=== PATIENT | male | born 1950 | race Caucasian/White ===

== ENCOUNTER 2023-12-23 20:53 | Inpatient (IN) | payer OTHER ==
[~2023-12-23] VITALS: Ht 172.7 cm; Wt 72.0 kg
[2023-12-23] MEDS: pantoprazole 40 MG vial IV ONE (22:54)
[2023-12-23] MEDS: normal saline 1000ml 1,000 ML IV ONE (23:10)
[2023-12-23 23:27] LABS: BASOPHILS # (AUTO) 0.1 X10'3 (0-0.2); BASOPHILS % (AUTO) 1.1 % (0-1); EOSINOPHILS % (AUTO) 0.8 % (0-6); HEMATOCRIT 31.1 % (42.0-52.0); HEMOGLOBIN 10.2 g/dl (14.0-17.9); LYMPHOCYTES # (AUTO) 0.4 X10'3 (1.1-4.8); LYMPHOCYTES % (AUTO) 7.8 % (21-51); MEAN CORPUSCULAR HEMOGLOBIN 30.3 PG (27.0-31.0); MEAN CORPUSCULAR HGB CONC 32.8 g/dL (33.0-36.5); MEAN CORPUSCULAR VOLUME 92.6 FL (78-98); MONOCYTES # (AUTO) 0.2 X10'3 (0-0.9); NEUTROPHILS # (AUTO) 4.5 X10'3 (1.8-7.7); NEUTROPHILS % (AUTO) 86.3 % (42-75); PLATELET COUNT 158 X10'3 (140-440); RED BLOOD COUNT 3.36 X10'6 (4.70-6.10); RED CELL DISTRIBUTION WIDTH 14.9 % (11.5-14.5); WHITE BLOOD COUNT 5.2 X10'3 (4.5-11.0)
[2023-12-23 23:38] LABS: ALBUMIN 3.2 G/DL (3.4-5.0); ANION GAP 8 (8-16); BLOOD UREA NITROGEN 31 MG/DL (7-18); CHLORIDE 107 MMOL/L (99-107); GLUCOSE 111 MG/DL (70-104); POTASSIUM 4.4 MMOL/L (3.5-5.1); SODIUM 143 MMOL/L (135-145); TOTAL CARBON DIOXIDE 27.9 MMOL/L (24-32)
[2023-12-24] VITALS (14 sets, daily range): BP systolic 99–127; BP diastolic 60–86; PULSE 78–101; RESP 14–23; TEMP 78–99.2; O2SAT 92–99
[2023-12-24] MEDS ORDERED: acetaminophen 325mg tablet PO PRN (00:45)
[2023-12-24] MEDS ORDERED: magnesium hydroxide 30ml (MOM) UD suspension PO PRN (00:45)
[2023-12-24] MEDS ORDERED: mag hydrox/Alum hydrox/simeth 30ml oral suspension PO PRN (00:45)
[2023-12-24] MEDS ORDERED: ondansetron/PF 4mg/2ml inj IV PRN (00:45)
[2023-12-24] MEDS ORDERED: magnesium sulf-water 2g/50mL 50 ML IV PRN (00:45)
[2023-12-24] MEDS ORDERED: morphine 2 MG/ML inj. syringe IV PRN (00:45)
[2023-12-24] MEDS ORDERED: potassium Cl 20 mEq SR tablet PO PRN ×2 (00:45)
[2023-12-24] MEDS ORDERED: potassium Cl 40MEQ/1/2NS 520ml 520 ML IV PRN (00:45)
[2023-12-24] MEDS ORDERED: magnesium Cl slow-release 64mg tablet PO PRN (00:45)
[2023-12-24] MEDS ORDERED: magnesium sulf-water 4G/100mL 100 ML IV PRN (00:45)
[2023-12-24 01:21] LABS: CALCIUM 8.1 MG/DL (8.5-10.1)
[2023-12-24] MEDS: ringers solution, lacted 1,000 ML IV ONE (01:57)
[2023-12-24 02:03] LABS: INR 1.3 INR
[2023-12-24 02:04] LABS: ALANINE AMINOTRANSFERASE 303 U/L (12-78); ALBUMIN/GLOBULIN RATIO 1.6 (1.1-1.5); ALKALINE PHOSPHATASE 123 IU/L (46-116); ASPARTATE AMINO TRANSFERASE 311 U/L (10-37); BILIRUBIN,TOTAL 0.7 MG/DL (0.1-1.0); TOTAL PROTEIN 5.2 G/DL (6.4-8.2)
[2023-12-24 02:06] LABS: APTT 20 SECONDS (22-32)
[2023-12-24] MEDS: pantoprazole 40MG/NS 100ML BAG 100 ML IV SCH (02:07)
[2023-12-24 02:37] LABS: MAGNESIUM 1.9 MG/DL (1.5-2.4)
[2023-12-24] MEDS: sodium chloride 0.45% 1,000 ML IV SCH (02:51)
[2023-12-24 02:54] LABS: INR 1.3 INR; PROTHROMBIN TIME 13.4 SECONDS (9.0-12.0)
[2023-12-24 02:56] LABS: APTT 20 SECONDS (22-32)
[2023-12-24] MEDS ORDERED: ATOR10TA87 PO (02:59)
[2023-12-24] MEDS ORDERED: PANT40TA54 PO (02:59)
[2023-12-24] MEDS ORDERED: ASPI-1265 PO (03:00)
[2023-12-24] MEDS ORDERED: ESCI10TA PO (03:01)
[2023-12-24 04:21] LABS: BILIRUBIN,URINE NEGATIVE (Neg); CLARITY,URINE CLEAR (Clear); COLOR,URINE YELLOW (Yellow); GLUCOSE, URINE NEGATIVE (Neg); KETONES,URINE NEGATIVE (Neg); LEUKOCYTE ESTERASE ,URINE NEGATIVE (Neg); NITRITES, URINE NEGATIVE (Neg); OCCULT BLOOD,URINE NEGATIVE (Neg); PROTEIN,URINE NEGATIVE (Neg); UROBILINOGEN,URINE 0.2 E.U/dL (0.2-1.0)
[2023-12-24 04:23] LABS: UA COLLECTION TYPE CLN CATCH MIDSTREAM
[2023-12-24 06:04] LABS: HEMATOCRIT 27.8 % (42.0-52.0); MEAN CORPUSCULAR HEMOGLOBIN 30.2 PG (27.0-31.0); MEAN CORPUSCULAR HGB CONC 32.5 g/dL (33.0-36.5); MEAN CORPUSCULAR VOLUME 92.8 FL (78-98); MEAN PLATELET VOLUME 9.1 FL (7.4-10.4); PLATELET COUNT 135 X10'3 (140-440); RED CELL DISTRIBUTION WIDTH 14.4 % (11.5-14.5); WHITE BLOOD COUNT 11.2 X10'3 (4.5-11.0)
[2023-12-24] MEDS: K and/or MAG REPLACEMENT MC SCH (08:00)
[2023-12-24] MEDS: docusate sod 100mg capsule PO SCH (08:00)
[2023-12-24 08:54] LABS: BUN/CREATININE RATIO 37.3 (10.0-20.0); CREATININE 0.83 MG/DL (0.60-1.10); eCRCL 77 ML/MIN; eGFR > 90 ML/MIN
[2023-12-24 08:55] LABS: CALCIUM 8.4 MG/DL (8.5-10.1)
[2023-12-24] MEDS ORDERED: fentaNYL/PF 50MCG/1 ML 2ML syringe ONE (09:31)
[2023-12-24] MEDS ORDERED: MIDAZolam 1 MG/ML 5ML VIAL ONE (09:32)
[2023-12-24] MEDS ORDERED: LIDOcaine 2% Viscous 15ml cup ONE (09:32)
[2023-12-24 15:15] LABS: HEMATOCRIT 26.8 % (42.0-52.0); HEMOGLOBIN 8.8 g/dl (14.0-17.9); MEAN CORPUSCULAR HEMOGLOBIN 30.3 PG (27.0-31.0); MEAN CORPUSCULAR HGB CONC 32.7 g/dL (33.0-36.5); MEAN CORPUSCULAR VOLUME 92.8 FL (78-98); PLATELET COUNT 130 X10'3 (140-440); RED BLOOD COUNT 2.89 X10'6 (4.70-6.10); RED CELL DISTRIBUTION WIDTH 15.2 % (11.5-14.5); WHITE BLOOD COUNT 10.7 X10'3 (4.5-11.0)
[2023-12-24] MEDS: normal saline 1000ml 1,000 ML IV SCH (15:25)
[2023-12-24] MEDS: diatr meglu/diatrizoate 30ml oral sol.-(3 dose) bottle PO SCH (20:36)
[2023-12-24 20:54] LABS: HEMATOCRIT 25.2 % (42.0-52.0); HEMOGLOBIN 8.3 g/dl (14.0-17.9); MEAN CORPUSCULAR HEMOGLOBIN 30.3 PG (27.0-31.0); MEAN CORPUSCULAR HGB CONC 33.1 g/dL (33.0-36.5); MEAN CORPUSCULAR VOLUME 91.5 FL (78-98); MEAN PLATELET VOLUME 8.4 FL (7.4-10.4); PLATELET COUNT 130 X10'3 (140-440); RED BLOOD COUNT 2.75 X10'6 (4.70-6.10); RED CELL DISTRIBUTION WIDTH 14.6 % (11.5-14.5); WHITE BLOOD COUNT 8.8 X10'3 (4.5-11.0)
[2023-12-25 02:00] VITALS: BP 104/73; PULSE 75; RESP 14; TEMP 98.7; O2SAT 98
[2023-12-25 06:15] LABS: BASOPHILS # (AUTO) 0.1 X10'3 (0-0.2); BASOPHILS % (AUTO) 1.2 % (0-1); EOSINOPHILS # (AUTO) 0.2 X10'3 (0-0.9); EOSINOPHILS % (AUTO) 2.4 % (0-6); HEMATOCRIT 25.4 % (42.0-52.0); HEMOGLOBIN 8.3 g/dl (14.0-17.9); LYMPHOCYTES # (AUTO) 0.8 X10'3 (1.1-4.8); LYMPHOCYTES % (AUTO) 10.9 % (21-51); MEAN CORPUSCULAR HEMOGLOBIN 30.7 PG (27.0-31.0); MEAN CORPUSCULAR HGB CONC 32.9 g/dL (33.0-36.5); MEAN CORPUSCULAR VOLUME 93.4 FL (78-98); MEAN PLATELET VOLUME 9.4 FL (7.4-10.4); MONOCYTES # (AUTO) 0.4 X10'3 (0-0.9); MONOCYTES % (AUTO) 5.3 % (2-12); NEUTROPHILS # (AUTO) 5.7 X10'3 (1.8-7.7); NEUTROPHILS % (AUTO) 80.2 % (42-75); PLATELET COUNT 130 X10'3 (140-440); RED BLOOD COUNT 2.72 X10'6 (4.70-6.10); RED CELL DISTRIBUTION WIDTH 14.6 % (11.5-14.5); WHITE BLOOD COUNT 7.1 X10'3 (4.5-11.0)
[2023-12-25 06:20] LABS: ALANINE AMINOTRANSFERASE 432 U/L (12-78); ALBUMIN 2.7 G/DL (3.4-5.0); ALBUMIN/GLOBULIN RATIO 1.4 (1.1-1.5); ALKALINE PHOSPHATASE 104 IU/L (46-116); ANION GAP 8 (8-16); ASPARTATE AMINO TRANSFERASE 455 U/L (10-37); BILIRUBIN,TOTAL 0.8 MG/DL (0.1-1.0); BLOOD UREA NITROGEN 17 MG/DL (7-18); BUN/CREATININE RATIO 22.1 (10.0-20.0); CALCIUM 7.5 MG/DL (8.5-10.1); CHLORIDE 109 MMOL/L (99-107); CREATININE 0.77 MG/DL (0.60-1.10); GLUCOSE 77 MG/DL (70-104); POTASSIUM 3.9 MMOL/L (3.5-5.1); SODIUM 144 MMOL/L (135-145); TOTAL CARBON DIOXIDE 26.8 MMOL/L (24-32); TOTAL PROTEIN 4.7 G/DL (6.4-8.2); eCRCL 83 ML/MIN; eGFR > 90 ML/MIN
[2023-12-25 06:54] VITALS: BP 124/91; PULSE 50; RESP 18; TEMP 97.3; O2SAT 97
[2023-12-25] MEDS: atorvastatin 10mg tablet PO SCH (07:27)
[2023-12-25] MEDS: pantoprazole 40mg Tablet.DR PO SCH ×2 (07:27→11:35)
[2023-12-25] MEDS: aspirin 81mg tab.chew PO SCH (07:27)
[2023-12-25] MEDS: ESCITALOPRAM 10 mg tablet 10 MG TABLET PO SCH (07:28)
[2023-12-25 08:20] VITALS: BP_SYST 122; BP_SYST 124; BP_DIAS 89; BP_DIAS 91; PULSE 50; PULSE 54; RESP 18; O2SAT 97
[2023-12-25] MEDS ORDERED: iohexol 300mg/ml 100ml inj. ONE (10:11)
[2023-12-25] MEDS: diatr meglu/diatrizoate 30ml oral sol.-(3 dose) bottle PO ONE (10:27)
[2023-12-25 11:22] VITALS: BP 108/70; PULSE 85; RESP 14; TEMP 98; O2SAT 96
[2023-12-25] MEDS ORDERED: PANT40TA54 PO (16:41)
[2023-12-25] MEDS ORDERED: diatr meglu/diatrizoate 30ml oral sol.-(3 dose) bottle PO SCH (21:00)
[2023-12-27 06:02] LABS: HBSAG SCREEN Negative (Negative); HEPATITIS C VIRUS ANTIBODY Non Reactive (Non Reactive)
== END 2023-12-25 17:14 | disposition home or self-care (01) | DRG 375 ==
LOC: ER 20:54 → ED HOLD 12-24 01:01 → PCU 3S 12-24 04:15
PROVIDERS: ADMIT Internal Medicine Pulmonary Disease; ATTEND Family Medicine
PROC: 0DB68ZX Excision of Stomach, Via Natural or Artificial Opening Endoscopic, Diagnostic (ICD-10-PCS; principal; 2023-12-24)
PROC: 0DB78ZX Excision of Stomach, Pylorus, Via Natural or Artificial Opening Endoscopic, Diagnostic (ICD-10-PCS; 2023-12-24)
PROC: BW211ZZ Computerized Tomography (CT Scan) of Abdomen and Pelvis using Low Osmolar Contrast (ICD-10-PCS; 2023-12-25)
DX: C78.89 Secondary malignant neoplasm of other digestive organs (principal); D62 Acute posthemorrhagic anemia; J91.8 Pleural effusion in other conditions classified elsewhere; J98.11 Atelectasis; C78.7 Secondary malignant neoplasm of liver and intrahepatic bile duct; K31.7 Polyp of stomach and duodenum; I10 Essential (primary) hypertension; E78.5 Hyperlipidemia, unspecified; K21.9 Gastro-esophageal reflux disease without esophagitis; F41.9 Anxiety disorder, unspecified; K80.20 Calculus of gallbladder without cholecystitis without obstruction; N40.0 Benign prostatic hyperplasia without lower urinary tract symptoms; Z88.5 Allergy status to narcotic agent
CPT/HCPCS: 36415; 43239; 70450; 71045; 74176; 74178; 76700; 80048; 80053; 81003; 82103; 82310; 82948; 83735; 83970; 84132; 84145; 84484; 85025; 85027; 85610; 85730; 86706; 86803; 86885; 86900; 86901; 87081; 87340; 87522; 88305; 88342; 93005; 97161; 97530; 99152; 99285; A4615; A4620; G0378; J2250; J2470; J3010; J3490; J7030; J7040; J7120; Q9963; Q9967

== ENCOUNTER 2024-03-05 04:20 | Inpatient (IN) | payer OTHER ==
[~2024-03-05] VITALS: Ht 175.3 cm; Wt 65.9 kg
[~2024-03-05 04:20] MED LIST: ATOR10TA87 PO; ESCI10TA PO; PANT40TA54 PO
[2024-03-05] MEDS: normal saline 1000ML IV soln IVB ONE (04:35)
[2024-03-05] MEDS: morphine 4 MG/ML inj SYRINge IV ONE (04:36)
[2024-03-05] MEDS: piperacillin/tazo 4.5gm/100ml 100 ML IV ONE (04:53)
[2024-03-05] MEDS: ondansetron/PF 4mg/2ml inj IV ONE (04:53)
[2024-03-05 04:58] LABS: BASOPHILS % (AUTO) 0.1 % (0-1); EOSINOPHILS % (AUTO) 0.1 % (0-6); HEMATOCRIT 38.1 % (42.0-52.0); HEMOGLOBIN 12.2 g/dl (14.0-17.9); LYMPHOCYTES # (AUTO) 0.1 X10'3 (1.1-4.8); LYMPHOCYTES % (AUTO) 2.5 % (21-51); MEAN CORPUSCULAR HEMOGLOBIN 28.3 PG (27.0-31.0); MEAN CORPUSCULAR HGB CONC 32.1 g/dL (33.0-36.5); MEAN PLATELET VOLUME 8.3 FL (7.4-10.4); MONOCYTES # (AUTO) 0.5 X10'3 (0-0.9); MONOCYTES % (AUTO) 8.8 % (2-12); NEUTROPHILS # (AUTO) 5.1 X10'3 (1.8-7.7); NEUTROPHILS % (AUTO) 88.5 % (42-75); PLATELET COUNT 121 X10'3 (140-440); RED BLOOD COUNT 4.33 X10'6 (4.70-6.10); RED CELL DISTRIBUTION WIDTH 19.7 % (11.5-14.5); WHITE BLOOD COUNT 5.8 X10'3 (4.5-11.0)
[2024-03-05 05:11] LABS: APTT 26 SECONDS (22-32); INR 1.2 INR; PROTHROMBIN TIME 12.7 SECONDS (9.0-12.0)
[2024-03-05 05:13] LABS: ALANINE AMINOTRANSFERASE 123 U/L (12-78); ALBUMIN 3.1 G/DL (3.4-5.0); ALBUMIN/GLOBULIN RATIO 0.9 (1.1-1.5); ALKALINE PHOSPHATASE 274 IU/L (46-116); ANION GAP 11 (8-16); ASPARTATE AMINO TRANSFERASE 218 U/L (10-37); BILIRUBIN,TOTAL 1.5 MG/DL (0.1-1.0); BLOOD UREA NITROGEN 14 MG/DL (7-18); BUN/CREATININE RATIO 14.6 (10.0-20.0); CALCIUM 9.1 MG/DL (8.5-10.1); CHLORIDE 102 MMOL/L (99-107); CREATININE 0.96 MG/DL (0.60-1.10); GLUCOSE 132 MG/DL (70-104); POTASSIUM 3.7 MMOL/L (3.5-5.1); SODIUM 139 MMOL/L (135-145); TOTAL CARBON DIOXIDE 25.9 MMOL/L (24-32); TOTAL PROTEIN 6.5 G/DL (6.4-8.2); eCRCL 64 ML/MIN; eGFR 77 ML/MIN
[2024-03-05 05:16] LABS: LACTATE DEHYDROGENASE 853 U/L (85-227); LIPASE 32 U/L (16-77); MAGNESIUM 1.8 MG/DL (1.5-2.4)
[2024-03-05 05:20] LABS: PLATELET ESTIMATE DECREASED
[2024-03-05 05:21] LABS: ANISOCYTOSIS 2+; MICROCYTOSIS 1+; TEAR DROP CELLS 1+
[2024-03-05] MEDS ORDERED: heparin 10,000 units/1 ML INJ IV ONE (05:30)
[2024-03-05] MEDS ORDERED: heparin 10,000 units/1 ML INJ IV PRN ×2 (05:30→07:20)
[2024-03-05] MEDS ORDERED: iohexol 300mg/ml 100ml inj. ONE (05:33)
[2024-03-05] MEDS: HYDROmorphone 1 mg/ml syringe IV ONE (05:36)
[2024-03-05] MEDS ORDERED: magnesium sulf-water 4G/100mL 100 ML IV PRN (05:55)
[2024-03-05] MEDS ORDERED: morphine 2 MG/ML inj. syringe IV PRN ×2 (05:55)
[2024-03-05] MEDS ORDERED: potassium Cl 20 mEq SR tablet PO PRN ×2 (05:55)
[2024-03-05] MEDS ORDERED: magnesium hydroxide 30ml (MOM) UD suspension PO PRN (05:55)
[2024-03-05] MEDS ORDERED: magnesium Cl slow-release 64mg tablet PO PRN (05:55)
[2024-03-05] MEDS ORDERED: mag hydrox/Alum hydrox/simeth 30ml oral suspension PO PRN (05:55)
[2024-03-05] MEDS ORDERED: acetaminophen 325mg tablet PO PRN (05:55)
[2024-03-05] MEDS ORDERED: potassium Cl 40MEQ/1/2NS 520ml 520 ML IV PRN (05:55)
[2024-03-05] MEDS ORDERED: magnesium sulf-water 2g/50mL 50 ML IV PRN (05:55)
[2024-03-05] MEDS: MESSAGE TO NURSING IV ONE ×3 (06:00→22:30)
[2024-03-05] MEDS: heparin 10,000 units/1 ML INJ IV ONE (06:12)
[2024-03-05] MEDS: heparin 25,000 UNIT/250ml bag 250 ML IV PRN ×2 (06:15→08:01)
[2024-03-05] MEDS ORDERED: iohexol 350MG/ML 100ml bottle IV ONE (07:18)
[2024-03-05 07:19] LABS: BASOPHILS % (AUTO) 0.3 % (0-1); EOSINOPHILS % (AUTO) 0.1 % (0-6); HEMATOCRIT 36.8 % (42.0-52.0); LYMPHOCYTES # (AUTO) 0.2 X10'3 (1.1-4.8); LYMPHOCYTES % (AUTO) 2.7 % (21-51); MEAN CORPUSCULAR HEMOGLOBIN 28.8 PG (27.0-31.0); MEAN CORPUSCULAR HGB CONC 32.7 g/dL (33.0-36.5); MEAN PLATELET VOLUME 8.4 FL (7.4-10.4); MONOCYTES # (AUTO) 0.6 X10'3 (0-0.9); MONOCYTES % (AUTO) 9.1 % (2-12); NEUTROPHILS # (AUTO) 5.9 X10'3 (1.8-7.7); NEUTROPHILS % (AUTO) 87.8 % (42-75); PLATELET COUNT 127 X10'3 (140-440); RED BLOOD COUNT 4.18 X10'6 (4.70-6.10); RED CELL DISTRIBUTION WIDTH 19.1 % (11.5-14.5); WHITE BLOOD COUNT 6.8 X10'3 (4.5-11.0)
[2024-03-05] MEDS: COMMUNICATION ORDER 1 EA MISC MC ONE (07:20)
[2024-03-05 07:55] LABS: INR 1.4 INR
[2024-03-05 08:00] VITALS: RESP 13; RESP 17; O2SAT 95
[2024-03-05] MEDS: docusate sod 100mg capsule PO SCH (08:00)
[2024-03-05] MEDS: K and/or MAG REPLACEMENT MC SCH (08:00)
[2024-03-05 08:28] LABS: HEMOGLOBIN A1C 5.1 % (4.5-6.2)
[2024-03-05] MEDS: pantoprazole 40mg Tablet.DR PO SCH (09:30)
[2024-03-05] MEDS: ESCITALOPRAM 10 mg tablet 10 MG TABLET PO SCH (09:30)
[2024-03-05] MEDS: atorvastatin 10mg tablet PO SCH (09:30)
[2024-03-05] MEDS ORDERED: OLME1TAB52 PO (09:41)
[2024-03-05] MEDS ORDERED: ZOLP5TAB8 PO (09:41)
[2024-03-05] MEDS ORDERED: SUCR1TAB PO (09:41)
[2024-03-05] MEDS: HYDROcodone/acetaminophen 10/325mg tab PO PRN (12:08)
[2024-03-05 13:15] VITALS: BP 127/83; PULSE 93; RESP 17; TEMP 98.1; O2SAT 95
[2024-03-05] MEDS ORDERED: HYDROmorphone/PF 0.2 MG/ML SYRINGE IV PRN (14:00)
[2024-03-05] MEDS: ondansetron/PF 4mg/2ml inj IV PRN (14:12)
[2024-03-05] MEDS: HYDROmorphone inj. 0.5 MG/0.5 ML DISP.SYRIN IV PRN (14:15)
[2024-03-05 18:00] VITALS: BP 134/90; PULSE 97; RESP 16; TEMP 98.1; O2SAT 95
[2024-03-05 22:00] VITALS: BP 113/77; PULSE 89; RESP 13; TEMP 97.7; O2SAT 96
[2024-03-06 06:00] VITALS: BP 109/76; PULSE 56; RESP 16; TEMP 98.7; O2SAT 98
[2024-03-06 06:37] LABS: BASOPHILS % (AUTO) 0.3 % (0-1); EOSINOPHILS % (AUTO) 0.2 % (0-6); HEMATOCRIT 35.6 % (42.0-52.0); HEMOGLOBIN 11.4 g/dl (14.0-17.9); LYMPHOCYTES # (AUTO) 0.2 X10'3 (1.1-4.8); LYMPHOCYTES % (AUTO) 1.9 % (21-51); MEAN CORPUSCULAR HGB CONC 32.1 g/dL (33.0-36.5); MEAN CORPUSCULAR VOLUME 90.3 FL (78-98); MEAN PLATELET VOLUME 8.5 FL (7.4-10.4); MONOCYTES % (AUTO) 7.5 % (2-12); NEUTROPHILS # (AUTO) 11.8 X10'3 (1.8-7.7); NEUTROPHILS % (AUTO) 90.1 % (42-75); PLATELET COUNT 125 X10'3 (140-440); RED BLOOD COUNT 3.94 X10'6 (4.70-6.10); RED CELL DISTRIBUTION WIDTH 20.2 % (11.5-14.5); WHITE BLOOD COUNT 13.1 X10'3 (4.5-11.0)
[2024-03-06 06:52] LABS: ALANINE AMINOTRANSFERASE 161 U/L (12-78); ALBUMIN 2.9 G/DL (3.4-5.0); ALBUMIN/GLOBULIN RATIO 0.9 (1.1-1.5); ALKALINE PHOSPHATASE 218 IU/L (46-116); ANION GAP 8 (8-16); ASPARTATE AMINO TRANSFERASE 246 U/L (10-37); BILIRUBIN,TOTAL 1.2 MG/DL (0.1-1.0); BLOOD UREA NITROGEN 21 MG/DL (7-18); BUN/CREATININE RATIO 19.3 (10.0-20.0); CALCIUM 8.9 MG/DL (8.5-10.1); CHLORIDE 103 MMOL/L (99-107); CREATININE 1.09 MG/DL (0.60-1.10); GLUCOSE 105 MG/DL (70-104); MAGNESIUM 2.1 MG/DL (1.5-2.4); POTASSIUM 3.7 MMOL/L (3.5-5.1); SODIUM 138 MMOL/L (135-145); TOTAL CARBON DIOXIDE 26.6 MMOL/L (24-32); TOTAL PROTEIN 6.1 G/DL (6.4-8.2); eCRCL 56 ML/MIN; eGFR 66 ML/MIN
[2024-03-06] MEDS: MESSAGE TO NURSING IV ONE ×3 (07:30→19:55)
[2024-03-06] MEDS: normal saline 1000ml 1,000 ML IV SCH (07:40)
[2024-03-06 10:00] VITALS: BP 117/78; PULSE 91; RESP 16; TEMP 98.7; O2SAT 94
[2024-03-06 18:00] VITALS: BP 113/76; PULSE 87; RESP 14; TEMP 98.6; O2SAT 96
[2024-03-06] MEDS ORDERED: PERFLUTREN PROTEIN-A MICROSPHR (Optison) 0.22 MG/ML 3ML VIAL IV ONE (18:50)
[2024-03-06 20:00] VITALS: RESP 14; O2SAT 96
[2024-03-06 22:00] VITALS: BP 114/73; PULSE 85; RESP 15; TEMP 98.9; O2SAT 95
[2024-03-07] MEDS: MESSAGE TO NURSING IV ONE ×2 (01:40→09:05)
[2024-03-07 07:36] LABS: BASOPHILS # (AUTO) 0.1 X10'3 (0-0.2); BASOPHILS % (AUTO) 0.6 % (0-1); EOSINOPHILS # (AUTO) 0.2 X10'3 (0-0.9); EOSINOPHILS % (AUTO) 2.1 % (0-6); HEMATOCRIT 35.4 % (42.0-52.0); HEMOGLOBIN 11.4 g/dl (14.0-17.9); LYMPHOCYTES # (AUTO) 0.2 X10'3 (1.1-4.8); LYMPHOCYTES % (AUTO) 2.5 % (21-51); MEAN CORPUSCULAR HEMOGLOBIN 28.6 PG (27.0-31.0); MEAN CORPUSCULAR HGB CONC 32.2 g/dL (33.0-36.5); MEAN CORPUSCULAR VOLUME 88.8 FL (78-98); MEAN PLATELET VOLUME 8.4 FL (7.4-10.4); MONOCYTES # (AUTO) 0.8 X10'3 (0-0.9); MONOCYTES % (AUTO) 8.2 % (2-12); NEUTROPHILS % (AUTO) 86.6 % (42-75); PLATELET COUNT 118 X10'3 (140-440); RED BLOOD COUNT 3.99 X10'6 (4.70-6.10); RED CELL DISTRIBUTION WIDTH 19.8 % (11.5-14.5); WHITE BLOOD COUNT 9.3 X10'3 (4.5-11.0)
[2024-03-07 08:15] LABS: ALANINE AMINOTRANSFERASE 144 U/L (12-78); ALBUMIN 2.8 G/DL (3.4-5.0); ALBUMIN/GLOBULIN RATIO 0.9 (1.1-1.5); ALKALINE PHOSPHATASE 231 IU/L (46-116); ANION GAP 9 (8-16); ASPARTATE AMINO TRANSFERASE 212 U/L (10-37); BILIRUBIN,TOTAL 1.2 MG/DL (0.1-1.0); BLOOD UREA NITROGEN 26 MG/DL (7-18); BUN/CREATININE RATIO 26.5 (10.0-20.0); CALCIUM 8.9 MG/DL (8.5-10.1); CHLORIDE 102 MMOL/L (99-107); CREATININE 0.98 MG/DL (0.60-1.10); GLUCOSE 91 MG/DL (70-104); MAGNESIUM 2.1 MG/DL (1.5-2.4); POTASSIUM 3.6 MMOL/L (3.5-5.1); SODIUM 139 MMOL/L (135-145); TOTAL CARBON DIOXIDE 28.1 MMOL/L (24-32); eCRCL 63 ML/MIN; eGFR 75 ML/MIN
[2024-03-07 12:38] VITALS: RESP 15
[2024-03-07] MEDS: HYDROcodone/acetaminophen 5mg/325mg tablet PO PRN (12:38)
[2024-03-07] MEDS ORDERED: HYDR-3965 PO (13:39)
[2024-03-07] MEDS ORDERED: RIVA20TA PO (14:06)
[2024-03-07] MEDS ORDERED: RIVA15TA PO (14:06)
== END 2024-03-07 14:20 | disposition home or self-care (01) | DRG 698 ==
LOC: ER 04:21 → ED HOLD 06:00 → ORTHO 4S 10:08
PROVIDERS: ADMIT Internal Medicine Sleep Medicine; ATTEND Family Medicine
PROC: B32T1ZZ Computerized Tomography (CT Scan) of Left Pulmonary Artery using Low Osmolar Contrast (ICD-10-PCS; principal; 2024-03-05)
PROC: B3201ZZ Computerized Tomography (CT Scan) of Thoracic Aorta using Low Osmolar Contrast (ICD-10-PCS; 2024-03-05)
PROC: B32S1ZZ Computerized Tomography (CT Scan) of Right Pulmonary Artery using Low Osmolar Contrast (ICD-10-PCS; 2024-03-05)
PROC: BW211ZZ Computerized Tomography (CT Scan) of Abdomen and Pelvis using Low Osmolar Contrast (ICD-10-PCS; 2024-03-05)
DX: N28.0 Ischemia and infarction of kidney (principal); I21.A1 Myocardial infarction type 2; I26.99 Other pulmonary embolism without acute cor pulmonale; C78.7 Secondary malignant neoplasm of liver and intrahepatic bile duct; R18.8 Other ascites; C16.9 Malignant neoplasm of stomach, unspecified; K21.9 Gastro-esophageal reflux disease without esophagitis; Z66 Do not resuscitate; F32.A Depression, unspecified; F10.90 Alcohol use, unspecified, uncomplicated; F41.9 Anxiety disorder, unspecified; E78.5 Hyperlipidemia, unspecified; I10 Essential (primary) hypertension; Z85.028 Personal history of other malignant neoplasm of stomach; Z92.3 Personal history of irradiation; Z88.5 Allergy status to narcotic agent; Z79.899 Other long term (current) drug therapy
CPT/HCPCS: 36415; 71045; 71275; 74177; 80053; 83036; 83615; 83690; 83735; 84484; 85008; 85025; 85610; 85730; 87040; 87081; 93005; 93306; 93308; 96365; 96375; 99291; A6258; G0378; J1171; J1644; J2270; J2405; J2543; J7030; J7040; Q9967